=== PATIENT | male | born 1970 | race Caucasian/White ===

== ENCOUNTER 2016-11-15 11:35 | Emergency (ER) | payer MEDICARE, OTHER | END 2016-11-15 13:59 | disposition home or self-care (01) | LOC: FER 11:35 | DX: R07.89 Other chest pain (principal); Z95.0 Presence of cardiac pacemaker | CPT/HCPCS: 36415; 71020; 84484; 93005 ==

== ENCOUNTER → 2021-01-16 | Day surgery (SDC) | payer OTHER ==
[~2021-01-16] MED LIST: CARTIA XT120 MG PO; FLUTICASONE PRO16 GM; LIPITOR 10MG TA10 MG PO; MECLIZINE 25MG25 MG PO; OMEPRAZOLE40 MG PO; ZOLOFT100 MG PO
[2021-01-16 08:58] LABS: HCT 47.9 % (42.0-52.0); HGB 16.7 g/dl (13.2-18.0); MCH 31.1 pg (25.0-31.0); MCHC 34.9 g/dL (32.0-36.0); MCV 89.2 fL (78.0-100.0); MPV 8.9 fL (6.0-9.5); RBC 5.37 M/uL (4.70-6.00); RDW 13.2 % (11.5-14.0); WBC 4.9 K/uL (4.0-10.5)
[2021-01-16 09:12] LABS: ALBUMIN 4.6 g/dL (3.4-5.0); BILIRUBIN - TOTAL 0.7 mg/dL (0.2-1.0); BUN/CREAT RATIO (CALC) 19.5 RATIO; CREATININE 1.18 mg/dL (0.67-1.17); GLOBULIN (CALCULATION) 4.5 g/dL; POTASSIUM 4.3 mmol/L (3.5-5.1); TOTAL PROTEIN 9.1 g/dL (6.4-8.2)
== END | disposition home or self-care (01) ==
LOC: FAS 08:21
PROVIDERS: Surgery
DX: Z12.11 Encounter for screening for malignant neoplasm of colon (principal); F32.9 Major depressive disorder, single episode, unspecified; I47.1 Supraventricular tachycardia; I49.5 Sick sinus syndrome; Z95.0 Presence of cardiac pacemaker; Z79.899 Other long term (current) drug therapy; Z20.822 Contact with and (suspected) exposure to COVID-19; Z82.5 Family history of asthma and other chronic lower respiratory diseases; Z82.49 Family history of ischemic heart disease and other diseases of the circulatory system
CPT/HCPCS: 36415; 80053; J2250; J2704; J7120